=== PATIENT | male | born 1990 | race Caucasian/White ===

== ENCOUNTER 2021-10-05 08:57 | Outpatient (CLI) | payer SELFPAY ==
--- NOTE | ~2021-10-05 | CT_ITS ---
EXAMINATION: CT abdomen pelvis wo con EXAM DATE: 10/05/2021 09:30 INDICATION: Right lower quadrant pain, low back pain with bending. TECHNIQUE: Spiral CT of the abdomen and pelvis was performed without contrast. Axial, coronal and s agittal images of the abdomen and pelvis were reviewed. The dose-length product (DLP) for this exami nation was 317.86 mGy-cm. The exposure was tailored according to patient size (auto mA exposure cont rol), and iterative reconstruction (ASIR) was used as additional dose reduction technique. There is no prior study for comparison. FINDINGS: Small metallic foreign body along the greater curvature of the stomach, likely something in gested. The liver, spleen, adrenal glands and pancreas are unremarkable. Gallbladder is unremarkabl e. No biliary obstruction. There is no nephrolithiasis or hydronephrosis. The prostate is unremar kable. The bladder is unremarkable. There is no retroperitoneal or pelvic lymphadenopathy. The appendix is not positively visualized. There is no pericecal inflammatory change to suggest appe ndicitis. The stomach and small bowel are unremarkable. There is moderate amount of colonic stool. No free intraperitoneal gas. The heart is normal in size. There are no pericardial or pleural e ffusions. The lung bases are unremarkable. There are no osteoblastic or osteolytic lesions identifi ed. IMPRESSION: 1. Small metallic pellet-like foreign body likely ingested and in dependent aspect of stomach. 2. Moderate colonic stool. Reviewed, dictated and finalized at location B. ANOLOGY PROFESSOR IMPRESSION: 1. Small metallic pellet-like foreign body likely ingested and in dependent as pect of stomach. 2. Moderate colonic stool.
--- NOTE | ~2021-10-05 | XR_ITS ---
EXAMINATION: XR lumbar spine 2-3V EXAM DATE: 10/05/2021 09:30 INDICATION: Low back pain with bending TECHNIQUE: Lumber spine frontal, lateral, lateral L5-S1 projections for interpretation. There is no prior study for comparison. FINDINGS: There is mild disc disease L4-5. Mild lumbar facet arthropathy. The vertebral bodies are a ligned in the AP dimension. There are no acute fractures identified. Metallic pellet-like foreign bod y projecting over left mid abdomen. Sacrum, sacroiliac joints, sacral arcuate lines are intact. IMPRESSION: Mild lumbar spondylosis. Reviewed, dictated and finalized at location B. EYOR INSTALLER IMPRESSION: Mild lumbar spondylosis.
== END 2021-10-05 08:58 | disposition home or self-care (01) ==
PROVIDERS: PCP Physician Assistant; Visit Provider Physician Assistant
DX: R10.31 Right lower quadrant pain (principal)
CPT/HCPCS: 72100; 74176